=== PATIENT | female | born 1930 | race Caucasian/White ===

== ENCOUNTER → 2016-10-07 | Outpatient (CLI) | payer OTHER, MEDICARE | LOC: FIMAGING 10:03 | DX: Z12.31 Encounter for screening mammogram for malignant neoplasm of breast (principal) | CPT/HCPCS: G0202 ==

== ENCOUNTER → 2017-01-23 | Outpatient (CLI) | payer OTHER, MEDICARE | LOC: BMCIMAGING 13:52 | PROVIDERS: ATTEND Internal Medicine Rheumatology | DX: M17.11 Unilateral primary osteoarthritis, right knee (principal); M85.861 Other specified disorders of bone density and structure, right lower leg; M25.461 Effusion, right knee ==

== ENCOUNTER → 2018-07-02 | Outpatient (CLI) | payer OTHER, MEDICARE | LOC: BMCIMAGING 10:30 | PROVIDERS: ATTEND Internal Medicine Endocrinology, Diabetes & Metabolism | DX: Z13.820 Encounter for screening for osteoporosis (principal); M81.0 Age-related osteoporosis without current pathological fracture; Z79.899 Other long term (current) drug therapy ==